=== PATIENT | female | born 1980 | race Caucasian/White ===

== ENCOUNTER 2021-08-04 06:48 | Outpatient (CLI) | payer OTHER, SELFPAY ==
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
== END 2021-08-04 06:49 | disposition home or self-care (01) ==
PROVIDERS: PCP Family Medicine; Visit Provider Registered Nurse
DX: R51.9 Headache, unspecified (principal)
CPT/HCPCS: 70551